=== PATIENT | female | born 2000 | race African-American/Black ===

== ENCOUNTER 2021-05-16 16:43 | Emergency (ER) | payer OTHER ==
[2021-05-16] MEDS ORDERED: LIDOCAINE 5% TOPICAL PATCH TP ONE (16:50)
[2021-05-16] MEDS ORDERED: ACETAMINOPHEN 500 MG TABLET (FP) PO ONE (16:50)
[2021-05-16] MEDS ORDERED: KETOROLAC TROMETHAMINE 30 MG/1 ML VIAL IM ONE (16:50)
[2021-05-16] MEDS ORDERED: METHOCARBAMOL 750 MG TAB PO ONE (16:51)
[2021-05-16] MEDS ORDERED: METHOCARBAMOL 500 MG TABLET ONE (16:53)
[2021-05-16] MEDS ORDERED: ACETAMINOPHEN 500 MG TABLET (FP) ONE (16:53)
[2021-05-16] MEDS ORDERED: KETOROLAC TROMETHAMINE 30 MG/1 ML VIAL ONE (16:53)
[2021-05-16] MEDS ORDERED: LIDOCAINE 5% TOPICAL PATCH ONE (16:54)
[2021-05-16 17:14] VITALS: BP 127/89; PULSE 74; TEMP 99.4; BMI 20.6
[2021-05-16] MEDS ORDERED: LIDOCAINE PATCH REMOVAL MC SCH (22:00)
== END 2021-05-16 17:18 | disposition home or self-care (01) ==
LOC: FER 16:43
PROC: 3E023GC Introduction of Other Therapeutic Substance into Muscle, Percutaneous Approach (ICD-10-PCS; principal; 2021-05-16)
DX: S13.4XXA Sprain of ligaments of cervical spine, initial encounter (principal); V49.40XA Driver injured in collision with unspecified motor vehicles in traffic accident, initial encounter
CPT/HCPCS: 99284-25

== ENCOUNTER 2021-05-21 18:19 | Emergency (ER) | payer OTHER ==
[2021-05-21 18:34] VITALS: BP 115/78; PULSE 72; TEMP 98.4; BMI 20.1
[2021-05-21] MEDS ORDERED: ACETAMINOPHEN 500 MG TABLET (FP) PO ONE (19:29)
[2021-05-21] MEDS ORDERED: LIDOCAINE 5% TOPICAL PATCH TP ONE ×4 (19:29→20:04)
[2021-05-21] MEDS ORDERED: ACETAMINOPHEN 325 MG TABLET (FP) ONE (19:37)
[2021-05-21] MEDS ORDERED: LIDOCAINE 5% TOPICAL PATCH ONE ×2 (19:37→20:07)
[2021-05-21] MEDS ORDERED: LIDOCAINE PATCH REMOVAL MC SCH ×4 (22:00)
== END 2021-05-21 20:08 | disposition home or self-care (01) ==
LOC: FER 18:19
DX: S13.4XXA Sprain of ligaments of cervical spine, initial encounter (principal); V89.9XXA Person injured in unspecified vehicle accident, initial encounter; Y92.9 Unspecified place or not applicable
CPT/HCPCS: 99283-25